=== PATIENT | male | born 1960 | race African-American/Black ===

== ENCOUNTER 2021-09-26 10:16 | Inpatient (IN) | payer OTHER ==
[2021-09-26] MEDS ORDERED: chlordiazePOXIDE HCL 25 MG CAPSULE PO PRN (13:04)
[2021-09-26] MEDS ORDERED: ACETAMINOPHEN 325 MG TABLET (FP) PO PRN ×2 (13:04)
[2021-09-26] MEDS ORDERED: ONDANSETRON *ODT* 4 MG TABLET SL PRN (13:04)
[2021-09-26] MEDS ORDERED: MAG HYDROX/AL HYDROX/SIMETH 30 ML UNIT-DOSE CUP PO PRN (13:04)
[2021-09-26] MEDS ORDERED: IBUPROFEN 400 MG TABLET (FP) PO PRN (13:04)
[2021-09-26] MEDS ORDERED: BISMUTH SUBSALICYLATE 262 MG/15 ML BTL PO PRN (13:04)
[2021-09-26] MEDS ORDERED: NICOTINE 10 MG CARTRIDGE (INHALER) IH PRN (13:04)
[2021-09-26] MEDS ORDERED: MAGNESIUM CITRATE 300 ML BOTTLE PO PRN (13:04)
[2021-09-26] MEDS ORDERED: methaDONE HCL 10 MG TABLET (FOR DETOX USE ONLY) PO ONE (13:04)
[2021-09-26] MEDS ORDERED: MAGNESIUM HYDROX 2400MG/30ML ORAL SUSPENSION 30 ML CUP PO PRN (13:04)
[2021-09-26] MEDS ORDERED: MENTHOL/PHENOL 1 EACH UD MM PRN (13:04)
[2021-09-26 13:16] VITALS: BMI 22.7
[2021-09-26] MEDS: hydrOXYzine PAMOATE 25 MG CAPSULE (FP) PO SCH ×3 (14:24→22:49)
[2021-09-26] MEDS: METHOCARBAMOL 500 MG TABLET PO PRN (14:24)
[2021-09-26] MEDS: chlordiazePOXIDE HCL 25 MG CAPSULE PO SCH ×2 (18:35→22:41)
[2021-09-26] MEDS: THIAMINE HCL 100 MG TABLET (FP) PO SCH (22:41)
[2021-09-26] MEDS: cloNIDine HCL 0.1 MG TABLET PO PRN (22:41)
[2021-09-26] MEDS: MELATONIN 5 MG TABLETS PO SCH (22:48)
[2021-09-27] MEDS: chlordiazePOXIDE HCL 25 MG CAPSULE PO SCH ×4 (05:26→22:57)
[2021-09-27] MEDS: hydrOXYzine PAMOATE 25 MG CAPSULE (FP) PO SCH ×5 (05:26→22:57)
[2021-09-27] MEDS ORDERED: methaDONE HCL 10 MG TABLET (FOR DETOX USE ONLY) ONE (09:20)
[2021-09-27] MEDS ORDERED: PRENATAL VITAMINS W/ FOLIC ACID TABLET (FP) PO SCH (10:00)
[2021-09-27 10:16] LABS: ALBUMIN 3.3 g/dl (3.4-5.0); BLOOD UREA NITROGEN 13.9 mg/dL (7-18); CALCIUM 8.5 mg/dL (8.5-10.1)
[2021-09-27 10:20] LABS: CREATININE 0.8 mg/dL (0.55-1.3)
[2021-09-27 10:21] LABS: TOT PROT 6.4 g/dl (6.4-8.2)
[2021-09-27] MEDS: METHOCARBAMOL 500 MG TABLET PO PRN ×2 (10:33→20:09)
[2021-09-27 10:42] LABS: HEMATOCRIT 34.6 % (35.4-49); HEMOGLOBIN 11.4 GM/dL (11.7-16.9); MCH 29.6 pg (25.7-33.7); MCHC 32.8 g/dl (32.0-35.9); MEAN CELL VOLUME 90.1 fl (80-96); MEAN PLT VOLUME 9.4 fl (7.5-11.1); PLATELET COUNT 205 10^3/uL (134-434); RBC 3.84 M/mm3 (4.00-5.60); WHITE BLOOD COUNT 3.3 K/mm3 (4.0-10.0)
[2021-09-27] MEDS ORDERED: FLU VACC QS2021-22(6MOS UP)/PF 60 MCG/0.5 ML SYRINGE IM ONE (12:00)
[2021-09-27] MEDS ORDERED: HYDROCHLOROTHIAZIDE 25 MG TABLET (FP) PO SCH (14:00)
[2021-09-27] MEDS: cloNIDine HCL 0.1 MG TABLET PO PRN (20:09)
[2021-09-27] MEDS ORDERED: LISINOPRIL 10 MG TABLET PO ONE (22:30)
[2021-09-27] MEDS: THIAMINE HCL 100 MG TABLET (FP) PO SCH (22:57)
[2021-09-27] MEDS: MELATONIN 5 MG TABLETS PO SCH (22:57)
[2021-09-28] MEDS ORDERED: chlordiazePOXIDE HCL 25 MG CAPSULE PO SCH (05:00)
[2021-09-28] MEDS: hydrOXYzine PAMOATE 25 MG CAPSULE (FP) PO SCH (05:16)
[2021-09-28 06:10] VITALS: TEMP 97.7
[2021-09-28 09:00] VITALS: BP 145/93; PULSE 93
[2021-09-28] MEDS ORDERED: LISINOPRIL 20 MG TABLET PO SCH (10:00)
[2021-09-28] MEDS ORDERED: methaDONE HCL 10 MG TABLET (FOR DETOX USE ONLY) PO ONE (10:00)
[2021-09-28 11:02] LABS: BASO % 0.4 % (0-2.0); EOS % 0.4 % (0-4.5); HEMATOCRIT 41.1 % (35.4-49); HEMOGLOBIN 13.7 GM/dL (11.7-16.9); LYMPH % 24.5 % (8-40); MCH 29.4 pg (25.7-33.7); MCHC 33.4 g/dl (32.0-35.9); MEAN PLT VOLUME 8.7 fl (7.5-11.1); MONO % 11.7 % (3.8-10.2); PLATELET COUNT 220 10^3/uL (134-434); RBC 4.67 M/mm3 (4.00-5.60); RDW 13.8 % (11.9-15.9); WHITE BLOOD COUNT 4.3 K/mm3 (4.0-10.0)
[2021-09-29] MEDS ORDERED: chlordiazePOXIDE HCL 10 MG CAPSULE PO PRN
[2021-09-29] MEDS ORDERED: chlordiazePOXIDE HCL 10 MG CAPSULE PO SCH (05:00)
[2021-09-30] MEDS ORDERED: chlordiazePOXIDE HCL 10 MG CAPSULE PO SCH (05:00)
[2021-09-30] MEDS ORDERED: methaDONE HCL 10 MG TABLET (FOR DETOX USE ONLY) PO ONE (10:00)
[2021-10-01] MEDS ORDERED: chlordiazePOXIDE HCL 10 MG CAPSULE PO ONE (05:00)
== END 2021-09-28 09:50 | disposition left against medical advice (07) | DRG 894 ==
LOC: YASAS 10:16 → Y6N 13:33
PROVIDERS: ADMIT Allergy & Immunology; ATTEND Allergy & Immunology
PROC: HZ2ZZZZ Detoxification Services for Substance Abuse Treatment (ICD-10-PCS; principal; 2021-09-26)
DX: F11.23 Opioid dependence with withdrawal (principal); F10.230 Alcohol dependence with withdrawal, uncomplicated; F17.210 Nicotine dependence, cigarettes, uncomplicated; F32.9 Major depressive disorder, single episode, unspecified; I10 Essential (primary) hypertension; B18.2 Chronic viral hepatitis C; Z99.89 Dependence on other enabling machines and devices; Z91.013 Allergy to seafood
CPT/HCPCS: 36415; 80053; 85025; 85027; 86780; 90686; C9803; G0008; J0735; Q0162; U0003; U0005

== ENCOUNTER 2024-05-18 16:09 | Inpatient (IN) | payer OTHER ==
[2024-05-18 18:17] VITALS: BMI 25.0
[2024-05-18] MEDS ORDERED: IBUPROFEN 400 MG TABLET (FP) PO PRN (19:40)
[2024-05-18] MEDS ORDERED: ACETAMINOPHEN 325 MG TABLET (FP) PO PRN (19:40)
[2024-05-18] MEDS ORDERED: MAGNESIUM HYDROX 2400MG/30ML ORAL SUSPENSION 30 ML CUP PO PRN (19:40)
[2024-05-18] MEDS ORDERED: NALOXONE HCL 0.4 MG/ML VIAL IM PRN (19:40)
[2024-05-18] MEDS ORDERED: MAG HYDROX/AL HYDROX/SIMETH 30 ML UNIT-DOSE CUP PO PRN (19:40)
[2024-05-18] MEDS ORDERED: LOPERAMIDE HCL 2 MG CAPSULE PO PRN (19:40)
[2024-05-18] MEDS ORDERED: BISMUTH SUBSALICYLATE 524 MG/30 ML PO PRN (19:40)
[2024-05-18] MEDS ORDERED: POLYETHYLENE GLYCOL (HEALTHYLAX) 3350 17 GM PACKET PO PRN (19:40)
[2024-05-18] MEDS ORDERED: guaiFENesin 600 MG TABLET.ER (FP) PO PRN (19:40)
[2024-05-18] MEDS ORDERED: BENZONATATE 200 MG CAPSULE PO PRN (19:40)
[2024-05-18] MEDS ORDERED: NALOXONE (NARCAN) HCL 4 MG/0.1 ML SPRAY NS PRN (19:40)
[2024-05-18] MEDS ORDERED: BENZOCAINE/MENTHOL (CHLORASEPTIC ) LOZENGE MM PRN (19:40)
[2024-05-18] MEDS ORDERED: P-EPHED 60MG/TRIPROLIDI 2.5MG TABLET PO PRN (19:40)
[2024-05-18] MEDS ORDERED: SIMETHICONE 80 MG TAB.CHEW (FP) PO PRN (19:50)
[2024-05-18] MEDS ORDERED: TETRAHYDROZOLINE HCL EYE DROPS OU PRN (21:39)
[2024-05-18] MEDS: MELATONIN 5 MG TABLETS PO SCH (21:46)
[2024-05-18] MEDS: hydrOXYzine PAMOATE 25 MG CAPSULE (FP) PO PRN (21:52)
[2024-05-18] MEDS: IBUPROFEN 600 MG TABLET (FP) PO PRN (21:52)
[2024-05-18] MEDS: THIAMINE 100 MG TABLET PO SCH (21:52)
[2024-05-19 10:29] LABS: CHLORIDE 103 mmol/L (98-107); HEMATOCRIT 36.3 % (35.4-49); HEMOGLOBIN 12.1 GM/dL (11.7-16.9); MCHC 33.3 g/dl (32.0-35.9); MEAN PLT VOLUME 8.5 fl (7.5-11.1); PLATELET COUNT 226 10^3/uL (134-434); POTASSIUM 4.3 mmol/L (3.5-5.1); RBC 4.17 M/mm3 (4.00-5.60); RDW 14.6 % (11.9-15.9); SODIUM 140 mmol/L (136-145)
[2024-05-19 10:41] LABS: ALBUMIN 3.4 g/dl (3.4-5.0); CALCIUM 8.6 mg/dL (8.5-10.1)
[2024-05-19 10:42] LABS: ANION GAP 8 mmol/L (4-13); CO2 30 mmol/L (21-32); GLUCOSE,RANDOM 88 mg/dL (74-106); SGPT/ALT 33 U/L (13-61)
[2024-05-19 10:43] LABS: SGOT/AST 36 U/L (15-37)
[2024-05-19 10:44] LABS: BILIRUBIN,TOTAL 0.9 mg/dL (0.2-1); CREATININE 0.9 mg/dL (0.55-1.3); TOT PROT 6.4 g/dl (6.4-8.2)
[2024-05-19 10:45] LABS: ALK PHOS 52 U/L (45-117)
[2024-05-19] MEDS: LISINOPRIL 20 MG TABLET PO SCH (10:49)
[2024-05-19] MEDS: PRENATAL VITAMINS W/ FOLIC ACID TABLET (FP) PO SCH (10:49)
[2024-05-19] MEDS: HYDROCHLOROTHIAZIDE 25 MG TABLET (FP) PO SCH (10:49)
[2024-05-19] MEDS: ONDANSETRON *ODT* 4 MG TABLET SL PRN (18:27)
[2024-05-19] MEDS: METHOCARBAMOL 500 MG TABLET PO PRN (18:27)
[2024-05-19] MEDS: DICYCLOMINE HCL 10 MG CAPSULE PO PRN (18:27)
[2024-05-20] MEDS ORDERED: diazePAM 5 MG TABLET PO PRN (13:36)
[2024-05-20] MEDS ORDERED: BUPRENORPHINE HCL 150 MCG, BUPRENORPHINE HCL 75 MCG BC PRN (13:36)
[2024-05-20] MEDS: BUPRENORPHINE HCL 150 MCG, BUPRENORPHINE HCL 75 MCG BC ONE (14:24)
[2024-05-20] MEDS: cloNIDine HCL 0.1 MG TABLET PO ONE (14:25)
[2024-05-20] MEDS: SUVOREXANT 10 MG TABLET PO PRN (21:46)
[2024-05-20] MEDS: cloNIDine HCL 0.1 MG TABLET PO PRN (21:46)
[2024-05-21] MEDS ORDERED: BUPRENORPHINE HCL 150 MCG, BUPRENORPHINE HCL 75 MCG BC PRN
[2024-05-21] MEDS: BUPRENORPHINE HCL 150 MCG, BUPRENORPHINE HCL 75 MCG BC SCH (06:13)
[2024-05-21] MEDS: NICOTINE POLACRILEX 2 MG GUM BUC PRN (17:07)
[2024-05-22] MEDS: BUPRENORPHINE HCL 450 MCG FILM BC SCH (06:00)
[2024-05-22] MEDS: NICOTINE POLACRILEX 2 MG LOZENGE BC PRN (07:16)
[2024-05-23] MEDS: BUPRENORPHINE/NALOXONE 4 MG/1 MG FILM PACKET SL SCH (05:39)
[2024-05-24] MEDS: BUPRENORPHINE/NALOXONE 8 MG/2 MG FILM PACKET SL ONE (05:17)
[2024-05-25 09:13] VITALS: RESP 16
[2024-05-25] MEDS: NICOTINE 21 MG/24 HOURS TOPICAL PATCH TD SCH (09:21)
[2024-05-25 12:47] VITALS: BP 150/73; PULSE 72; TEMP 97.7
== END 2024-05-25 14:58 | disposition other institution (70) | DRG 897 ==
LOC: YASAS 16:09 → Y6N 20:52
PROVIDERS: ADMIT Allergy & Immunology; ATTEND Surgery
PROC: HZ2ZZZZ Detoxification Services for Substance Abuse Treatment (ICD-10-PCS; principal; 2024-05-18)
DX: F11.20 Opioid dependence, uncomplicated (principal); F14.20 Cocaine dependence, uncomplicated; F19.282 Other psychoactive substance dependence with psychoactive substance-induced sleep disorder; F10.20 Alcohol dependence, uncomplicated; F17.210 Nicotine dependence, cigarettes, uncomplicated; F19.24 Other psychoactive substance dependence with psychoactive substance-induced mood disorder; F32.9 Major depressive disorder, single episode, unspecified; B18.2 Chronic viral hepatitis C; I10 Essential (primary) hypertension; M17.0 Bilateral primary osteoarthritis of knee; Z99.89 Dependence on other enabling machines and devices
CPT/HCPCS: 36415; 80053; 80305; 80307; 85027; 86780; 87811; 93005; 93010; Q0162

== ENCOUNTER 2024-05-25 14:49 | Inpatient (IN) | payer OTHER ==
[2024-05-25] MEDS ORDERED: hydrOXYzine PAMOATE 25 MG CAPSULE (FP) PO PRN (15:30)
[2024-05-25] MEDS ORDERED: LOPERAMIDE HCL 2 MG CAPSULE PO PRN (15:30)
[2024-05-25] MEDS ORDERED: NALOXONE HCL 0.4 MG/ML VIAL IVPUSH PRN (15:30)
[2024-05-25] MEDS ORDERED: BENZONATATE 200 MG CAPSULE PO PRN (15:30)
[2024-05-25] MEDS ORDERED: POLYETHYLENE GLYCOL (HEALTHYLAX) 3350 17 GM PACKET PO PRN (15:30)
[2024-05-25] MEDS ORDERED: METHOCARBAMOL 500 MG TABLET PO PRN (15:30)
[2024-05-25] MEDS ORDERED: BENZOCAINE/MENTHOL (CHLORASEPTIC ) LOZENGE MM PRN (15:30)
[2024-05-25] MEDS ORDERED: IBUPROFEN 400 MG TABLET (FP) PO PRN (15:30)
[2024-05-25] MEDS ORDERED: ACETAMINOPHEN 325 MG TABLET (FP) PO PRN (15:30)
[2024-05-25] MEDS ORDERED: IBUPROFEN 600 MG TABLET (FP) PO PRN (15:30)
[2024-05-25] MEDS ORDERED: guaiFENesin 600 MG TABLET.ER (FP) PO PRN (15:30)
[2024-05-25] MEDS ORDERED: NALOXONE (NARCAN) HCL 4 MG/0.1 ML SPRAY NS PRN (15:30)
[2024-05-25] MEDS: NICOTINE 14 MG/24 HOURS TOPICAL PATCH TD SCH (15:59)
[2024-05-25] MEDS: cloNIDine HCL 0.1 MG TABLET PO ONE (17:11)
[2024-05-25] MEDS: MELATONIN 5 MG TABLETS PO SCH (22:46)
[2024-05-25] MEDS: THIAMINE 100 MG TABLET PO SCH (22:46)
[2024-05-26] MEDS: PRENATAL VITAMINS W/ FOLIC ACID TABLET (FP) PO SCH (09:20)
[2024-05-26] MEDS: LISINOPRIL 20 MG TABLET PO SCH (09:21)
[2024-05-26] MEDS: BUPRENORPHINE/NALOXONE 8 MG/2 MG FILM PACKET SL SCH (09:21)
[2024-05-26] MEDS: HYDROCHLOROTHIAZIDE 25 MG TABLET (FP) PO SCH (09:21)
[2024-05-26] MEDS: SUVOREXANT 10 MG TABLET PO PRN (21:26)
[2024-05-28] MEDS: MAG HYDROX/AL HYDROX/SIMETH 30 ML UNIT-DOSE CUP PO PRN (19:01)
[2024-05-30] MEDS: MAGNESIUM HYDROX 2400MG/30ML ORAL SUSPENSION 30 ML CUP PO PRN (21:19)
[2024-06-03 06:43] VITALS: TEMP 97.1
[2024-06-03 08:58] VITALS: BP 128/74; PULSE 93; RESP 18
== END 2024-06-03 11:40 | disposition home or self-care (01) | DRG 895 ==
LOC: YASAS 14:49 → Y3NR 14:52 → Y3W 05-26 11:40
PROVIDERS: ADMIT Psychiatry & Neurology Pain Medicine; ATTEND Psychiatry & Neurology Pain Medicine
PROC: HZ42ZZZ Group Counseling for Substance Abuse Treatment, Cognitive-Behavioral (ICD-10-PCS; principal; 2024-05-25)
DX: F11.20 Opioid dependence, uncomplicated (principal); Z59.01 Sheltered homelessness; F10.20 Alcohol dependence, uncomplicated; F17.210 Nicotine dependence, cigarettes, uncomplicated; F32.A Depression, unspecified; I10 Essential (primary) hypertension; B18.2 Chronic viral hepatitis C; M17.0 Bilateral primary osteoarthritis of knee; Z99.89 Dependence on other enabling machines and devices; Z56.0 Unemployment, unspecified
CPT/HCPCS: 36415; 86803; 87522

== ENCOUNTER 2024-08-27 08:50 | Inpatient (IN) | payer OTHER ==
[2024-08-27 09:32] VITALS: BMI 23.3
[2024-08-27] MEDS ORDERED: MAG HYDROX/AL HYDROX/SIMETH 30 ML UNIT-DOSE CUP PO PRN (11:00)
[2024-08-27] MEDS ORDERED: DICYCLOMINE HCL 10 MG CAPSULE PO PRN (11:00)
[2024-08-27] MEDS ORDERED: NALOXONE (NARCAN) HCL 4 MG/0.1 ML SPRAY NS PRN (11:00)
[2024-08-27] MEDS ORDERED: diazePAM 5 MG TABLET PO PRN (11:00)
[2024-08-27] MEDS ORDERED: BENZOCAINE/MENTHOL (CHLORASEPTIC ) LOZENGE MM PRN (11:00)
[2024-08-27] MEDS ORDERED: MAGNESIUM HYDROX 2400MG/30ML ORAL SUSPENSION 30 ML CUP PO PRN (11:00)
[2024-08-27] MEDS ORDERED: BENZONATATE 200 MG CAPSULE PO PRN (11:00)
[2024-08-27] MEDS ORDERED: IBUPROFEN 400 MG TABLET (FP) PO PRN (11:00)
[2024-08-27] MEDS ORDERED: IBUPROFEN 600 MG TABLET (FP) PO PRN (11:00)
[2024-08-27] MEDS ORDERED: POLYETHYLENE GLYCOL (HEALTHYLAX) 3350 17 GM PACKET PO PRN (11:00)
[2024-08-27] MEDS ORDERED: NICOTINE POLACRILEX 2 MG LOZENGE BC PRN (11:00)
[2024-08-27] MEDS ORDERED: LOPERAMIDE HCL 2 MG CAPSULE PO PRN (11:00)
[2024-08-27] MEDS ORDERED: guaiFENesin 600 MG TABLET.ER (FP) PO PRN (11:00)
[2024-08-27] MEDS ORDERED: BISMUTH SUBSALICYLATE 524 MG/30 ML PO PRN (11:00)
[2024-08-27] MEDS ORDERED: ACETAMINOPHEN 325 MG TABLET (FP) PO PRN (11:00)
[2024-08-27] MEDS ORDERED: LORazepam 1 MG TABLET PO PRN (11:00)
[2024-08-27] MEDS ORDERED: NICOTINE POLACRILEX 2 MG GUM BUC PRN (11:00)
[2024-08-27] MEDS ORDERED: BUPRENORPHINE HCL 150 MCG, BUPRENORPHINE HCL 75 MCG BC PRN (11:00)
[2024-08-27] MEDS: ONDANSETRON *ODT* 4 MG TABLET SL PRN (12:53)
[2024-08-27] MEDS: cloNIDine HCL 0.1 MG TABLET PO ONE (12:59)
[2024-08-27] MEDS: HYDROCHLOROTHIAZIDE 25 MG TABLET (FP) PO SCH (12:59)
[2024-08-27] MEDS: NICOTINE 14 MG/24 HOURS TOPICAL PATCH TD SCH (12:59)
[2024-08-27] MEDS: LISINOPRIL 20 MG TABLET PO SCH (12:59)
[2024-08-27] MEDS: BUPRENORPHINE HCL 150 MCG, BUPRENORPHINE HCL 75 MCG BC ONE (13:00)
[2024-08-27] MEDS: LORazepam 2 MG TABLET PO SCH (22:31)
[2024-08-27] MEDS: MELATONIN 5 MG TABLETS PO SCH (22:31)
[2024-08-27] MEDS: THIAMINE 100 MG TABLET PO SCH (22:31)
[2024-08-28] MEDS ORDERED: BUPRENORPHINE HCL 150 MCG, BUPRENORPHINE HCL 75 MCG BC PRN
[2024-08-28] MEDS: BUPRENORPHINE HCL 150 MCG, BUPRENORPHINE HCL 75 MCG BC SCH (05:19)
[2024-08-28 09:36] LABS: CHLORIDE 103 mmol/L (98-107); POTASSIUM 3.4 mmol/L (3.5-5.1); SODIUM 138 mmol/L (136-145)
[2024-08-28 09:40] LABS: HEMATOCRIT 39.5 % (35.4-49); HEMOGLOBIN 12.6 GM/dL (11.7-16.9); MCH 27.8 pg (25.7-33.7); MCHC 31.9 g/dl (32.0-35.9); MEAN CELL VOLUME 87.1 fl (80-96); MEAN PLT VOLUME 8.8 fl (7.5-11.1); PLATELET COUNT 263 10^3/uL (134-434); RBC 4.53 M/mm3 (4.00-5.60); RDW 13.9 % (11.9-15.9)
[2024-08-28 09:43] LABS: ALBUMIN 3.6 g/dl (3.4-5.0); ANION GAP 5 mmol/L (4-13); BLOOD UREA NITROGEN 15.9 mg/dL (7-18); CALCIUM 9.4 mg/dL (8.5-10.1); CO2 30 mmol/L (21-32); GLUCOSE,RANDOM 128 mg/dL (74-106)
[2024-08-28 09:46] LABS: CREATININE 1.1 mg/dL (0.55-1.3); SGPT/ALT 17 U/L (13-61)
[2024-08-28 09:47] LABS: BILIRUBIN,TOTAL 0.7 mg/dL (0.2-1); SGOT/AST 12 U/L (15-37); TOT PROT 7.1 g/dl (6.4-8.2)
[2024-08-28 09:48] LABS: ALK PHOS 61 U/L (45-117)
[2024-08-28] MEDS: PRENATAL VITAMINS W/ FOLIC ACID TABLET (FP) PO SCH (10:29)
[2024-08-28] MEDS: POTASSIUM CHLORIDE ORAL LIQUID 20 MEQ/15 ML PO ONE (11:49)
[2024-08-28] MEDS: diazePAM 5 MG TABLET PO SCH (17:22)
[2024-08-28] MEDS ORDERED: cloNIDine HCL 0.1 MG TABLET PO PRN (17:41)
[2024-08-28] MEDS: cloNIDine HCL 0.1 MG TABLET PO PRN (18:26)
[2024-08-28] MEDS: hydrOXYzine PAMOATE 25 MG CAPSULE (FP) PO PRN (18:26)
[2024-08-28] MEDS: METHOCARBAMOL 500 MG TABLET PO PRN (18:26)
[2024-08-29] MEDS ORDERED: LORazepam 1 MG TABLET PO SCH (05:00)
[2024-08-29] MEDS: BUPRENORPHINE HCL 450 MCG FILM BC SCH (05:47)
[2024-08-29] MEDS: ARIPiprazole 5 MG TABLET PO SCH (10:09)
[2024-08-29 12:31] LABS: POTASSIUM 3.4 mmol/L (3.5-5.1)
[2024-08-29 12:41] LABS: CALCIUM 9.5 mg/dL (8.5-10.1)
[2024-08-29 12:42] LABS: BLOOD UREA NITROGEN 16.7 mg/dL (7-18)
[2024-08-29 12:45] LABS: CREATININE 1.2 mg/dL (0.55-1.3)
[2024-08-30] MEDS ORDERED: LORazepam 0.5 MG TABLET PO PRN
[2024-08-30] MEDS ORDERED: LORazepam 0.5 MG TABLET PO SCH (05:00)
[2024-08-30] MEDS: diazePAM 5 MG TABLET PO SCH (05:10)
[2024-08-30] MEDS: BUPRENORPHINE/NALOXONE 4 MG/1 MG FILM PACKET SL SCH (05:11)
[2024-08-30] MEDS: diazePAM 5 MG TABLET PO PRN (09:37)
[2024-08-30] MEDS ORDERED: POTASSIUM CHLORIDE ORAL LIQUID 20 MEQ/15 ML PO ONE (11:35)
[2024-08-30] MEDS: POTASSIUM CHLORIDE ORAL LIQUID 20 MEQ/15 ML PO ONE (12:10)
[2024-08-30] MEDS: POTASSIUM CHLORIDE ORAL LIQUID 20 MEQ/15 ML PO SCH (21:44)
[2024-08-31] MEDS ORDERED: LORazepam 0.5 MG TABLET PO ONE (05:00)
[2024-08-31] MEDS: diazePAM 5 MG TABLET PO SCH (05:39)
[2024-08-31] MEDS: BUPRENORPHINE/NALOXONE 8 MG/2 MG FILM PACKET SL ONE (05:40)
[2024-08-31 11:24] LABS: POTASSIUM 3.5 mmol/L (3.5-5.1)
[2024-08-31 11:26] LABS: CALCIUM 9.2 mg/dL (8.5-10.1)
[2024-08-31 11:27] LABS: BLOOD UREA NITROGEN 26.1 mg/dL (7-18)
[2024-08-31 11:30] LABS: CREATININE 1.2 mg/dL (0.55-1.3)
[2024-09-01] MEDS: diazePAM 5 MG TABLET PO ONE (05:11)
[2024-09-01 10:11] VITALS: BP 119/64; PULSE 73; RESP 18; TEMP 97.8
[2024-09-01] MEDS: NALOXONE (NYS OPIOID OVERDOSE PROGRAM) 4 MG/0.1 ML SPRAY NS SCH (10:32)
== END 2024-09-01 10:51 | disposition home or self-care (01) | DRG 897 ==
LOC: YASAS 08:50 → Y3N 11:05
PROVIDERS: ADMIT Allergy & Immunology; ATTEND Surgery
PROC: HZ2ZZZZ Detoxification Services for Substance Abuse Treatment (ICD-10-PCS; principal; 2024-08-27)
DX: F11.23 Opioid dependence with withdrawal (principal); F19.282 Other psychoactive substance dependence with psychoactive substance-induced sleep disorder; F10.230 Alcohol dependence with withdrawal, uncomplicated; F17.210 Nicotine dependence, cigarettes, uncomplicated; F31.9 Bipolar disorder, unspecified; F19.24 Other psychoactive substance dependence with psychoactive substance-induced mood disorder; F32.A Depression, unspecified; E87.6 Hypokalemia; I10 Essential (primary) hypertension; B18.2 Chronic viral hepatitis C; M17.0 Bilateral primary osteoarthritis of knee
CPT/HCPCS: 36415; 80048; 80053; 80305; 80307; 85027; 86780; 93005; 93010; Q0162

== ENCOUNTER 2024-12-09 15:13 | Inpatient (IN) | payer OTHER ==
[2024-12-09 16:02] VITALS: BMI 23.2
[2024-12-09] MEDS ORDERED: POLYETHYLENE GLYCOL (HEALTHYLAX) 3350 17 GM PACKET PO PRN (16:18)
[2024-12-09] MEDS ORDERED: MAGNESIUM HYDROX 2400MG/30ML ORAL SUSPENSION 30 ML CUP PO PRN (16:18)
[2024-12-09] MEDS ORDERED: P-EPHED 60MG/TRIPROLIDI 2.5MG TABLET PO PRN (16:18)
[2024-12-09] MEDS ORDERED: LOPERAMIDE HCL 2 MG CAPSULE PO PRN (16:18)
[2024-12-09] MEDS ORDERED: METHOCARBAMOL 500 MG TABLET PO PRN (16:18)
[2024-12-09] MEDS ORDERED: NICOTINE POLACRILEX 2 MG LOZENGE BC PRN (16:18)
[2024-12-09] MEDS ORDERED: DICYCLOMINE HCL 10 MG CAPSULE PO PRN (16:18)
[2024-12-09] MEDS ORDERED: guaiFENesin 600 MG TABLET.ER (FP) PO PRN (16:18)
[2024-12-09] MEDS ORDERED: BENZOCAINE/MENTHOL (CHLORASEPTIC ) LOZENGE MM PRN (16:18)
[2024-12-09] MEDS ORDERED: BISMUTH SUBSALICYLATE 524 MG/30 ML PO PRN (16:18)
[2024-12-09] MEDS ORDERED: BENZONATATE 200 MG CAPSULE PO PRN (16:18)
[2024-12-09] MEDS ORDERED: IBUPROFEN 600 MG TABLET (FP) PO PRN (16:18)
[2024-12-09] MEDS ORDERED: MAG HYDROX/AL HYDROX/SIMETH 30 ML UNIT-DOSE CUP PO PRN (16:18)
[2024-12-09] MEDS ORDERED: IBUPROFEN 400 MG TABLET (FP) PO PRN (16:18)
[2024-12-09] MEDS ORDERED: ACETAMINOPHEN 325 MG TABLET (FP) PO PRN (16:18)
[2024-12-09] MEDS ORDERED: ONDANSETRON *ODT* 4 MG TABLET SL PRN (16:18)
[2024-12-09] MEDS ORDERED: NALOXONE (NARCAN) HCL 4 MG/0.1 ML SPRAY NS PRN (16:18)
[2024-12-09] MEDS ORDERED: cloNIDine HCL 0.1 MG TABLET PO PRN (17:07)
[2024-12-09] MEDS ORDERED: methaDONE HCL 10 MG TABLET (FOR DETOX USE ONLY) PO ONE (21:00)
[2024-12-09] MEDS: THIAMINE 100 MG TABLET PO SCH (22:38)
[2024-12-09] MEDS: MELATONIN 5 MG TABLETS PO SCH (22:38)
[2024-12-10] MEDS: methaDONE HCL 10 MG TABLET (FOR DETOX USE ONLY) PO ONE
[2024-12-10] MEDS: PRENATAL VITAMINS W/ FOLIC ACID TABLET (FP) PO SCH (10:47)
[2024-12-10] MEDS: amLODIPine BESYLATE 10 MG TABLET (FP) PO SCH (10:47)
[2024-12-10] MEDS: CHOLECALCIFEROL (VIT D3) 5000 UNITS (125 MCG) CAP PO SCH (10:51)
[2024-12-10 11:31] LABS: HEMATOCRIT 35.1 % (35.4-49); HEMOGLOBIN 11.8 GM/dL (11.7-16.9); MCH 28.7 pg (25.7-33.7); MCHC 33.6 g/dl (32.0-35.9); MEAN CELL VOLUME 85.3 fl (80-96); MEAN PLT VOLUME 8.1 fl (7.5-11.1); PLATELET COUNT 266 10^3/uL (134-434); RBC 4.11 M/mm3 (4.00-5.60); RDW 14.2 % (11.9-15.9); WHITE BLOOD COUNT 3.5 K/mm3 (4.0-10.0)
[2024-12-10 11:35] LABS: POTASSIUM 3.8 mmol/L (3.5-5.1)
[2024-12-10 11:45] LABS: ALBUMIN 3.4 g/dl (3.4-5.0)
[2024-12-10 11:46] LABS: BLOOD UREA NITROGEN 14.4 mg/dL (7-18); CREATININE 0.8 mg/dL (0.55-1.3)
[2024-12-10 11:47] LABS: BILIRUBIN,TOTAL 0.8 mg/dL (0.2-1); CALCIUM 8.6 mg/dL (8.5-10.1); TOT PROT 6.3 g/dl (6.4-8.2)
[2024-12-10] MEDS: NICOTINE POLACRILEX 2 MG GUM BUC PRN (12:18)
[2024-12-10] MEDS: NICOTINE 21 MG/24 HOURS TOPICAL PATCH TD SCH (12:55)
[2024-12-11] MEDS: methaDONE HCL 10 MG TABLET (FOR DETOX USE ONLY) PO ONE (10:02)
[2024-12-12] MEDS: diazePAM 5 MG TABLET PO PRN (13:17)
[2024-12-13] MEDS: methaDONE HCL 10 MG TABLET (FOR DETOX USE ONLY) PO ONE (09:16)
[2024-12-14 14:01] VITALS: BP 120/66; PULSE 65; RESP 18; TEMP 97.7
== END 2024-12-14 14:02 | disposition other institution (70) | DRG 897 ==
LOC: YASAS 15:13 → Y3N 18:05
PROVIDERS: ADMIT Allergy & Immunology; ATTEND Allergy & Immunology
PROC: HZ2ZZZZ Detoxification Services for Substance Abuse Treatment (ICD-10-PCS; principal; 2024-12-09)
DX: F11.23 Opioid dependence with withdrawal (principal); F10.20 Alcohol dependence, uncomplicated; F17.210 Nicotine dependence, cigarettes, uncomplicated; F31.9 Bipolar disorder, unspecified; F19.24 Other psychoactive substance dependence with psychoactive substance-induced mood disorder; I10 Essential (primary) hypertension; G47.00 Insomnia, unspecified; M17.0 Bilateral primary osteoarthritis of knee; R26.89 Other abnormalities of gait and mobility; Z99.89 Dependence on other enabling machines and devices
CPT/HCPCS: 36415; 80053; 80305; 80307; 85027; 86780; 87811; 93005; 93010